=== PATIENT | female | born 2005 | race Caucasian/White ===

== ENCOUNTER 2025-04-01 19:46 | Emergency (ER) | payer SELFPAY ==
[2025-04-01] MEDS ORDERED: predniSONE 20 MG TAB ONE (20:41)
== END 2025-04-01 20:46 | disposition home or self-care (01) ==
LOC: CSHERS 19:46
DX: R21 Rash and other nonspecific skin eruption (principal)
CPT/HCPCS: 99282; J7512

== ENCOUNTER 2025-04-05 19:56 | Emergency (ER) | payer BC, SELFPAY | END 2025-04-05 23:35 | disposition home or self-care (01) | LOC: CSHERS 19:56 | DX: B35.8 Other dermatophytoses (principal) ==